=== PATIENT | male | born 1975 | race African-American/Black ===

== ENCOUNTER 2018-08-09 23:04 | Inpatient (IN) ==
[2018-08-10] MEDS ORDERED: SODIUM CHLORIDE 0.9% 1,000 ML IV SCH (00:30)
[2018-08-10] MEDS ORDERED: ALBUTEROL 2.5 MG/3 ML NEB RESP TX PRN (00:34)
[2018-08-10 00:48] LABS: Basophils # 0.1 10*3/uL (0.0-0.2); Basophils % 0.5 % (0.0-0.8); Eosinophils % 0.4 % (0.00-10.9); Hematocrit 24.5 VOL% (42.0-52.0); Hemoglobin 7.8 GM/DL (14.0-18.0); Immature Granulocytes % 2.5 %; Immature Granulocytes Absolute 0.24 #; Lymphocytes # 0.3 10*3/uL (1.4-4.0); Lymphocytes % 2.8 % (21.2-54.2); Mean Corpuscular HGB Conc 31.8 GM/DL (32-36); Mean Corpuscular Volume 89.7 FL (87-102); Monocytes % 9.8 % (1.7-12.7); Platelet Count 266 T/CUMM (130-400); Red Blood Count 2.73 MC/CUMM (3.8-5.5); Red Cell Distribution Width 16.6 % (9.3-17.3); White Blood Count 9.5 T/CUMM (4-12)
[2018-08-10 01:06] LABS: Osmolality,Calculated 328.1 MOS/KG (273-304)
[2018-08-10 01:11] LABS: Band Neutrophils 1 % (0-10); Eosinophils 1 % (0-10); Lymphocytes 4 % (20-55); Segmented Neutrophils 83 % (50-85)
[2018-08-10 01:13] LABS: Platelet Estimate Normal; Total Cells Counted 100
[2018-08-10] MEDS ORDERED: GLUCAGON 1 MG VIAL IM PRN (01:46)
[2018-08-10] MEDS ORDERED: DEXTROSE 50% 25 GM/50 ML SYRINGE IV PRN (01:46)
[2018-08-10] MEDS: SODIUM BICARB INJ 150 MEQ in DEXTROSE 5% 1,000 ML IV SCH (02:49)
[2018-08-10] MEDS: INSULIN LISPRO 100 UNIT/ML SUBCUT SCH ×4 (02:58→21:18)
[2018-08-10] MEDS ORDERED: DEXTROSE 5% 1,000 ML IV SCH (04:30)
[2018-08-10 04:56] LABS: ABG Base Excess -16.2 MMOL/L (-2.5-2.5); ABG HCO3 11.9 MMOL/L (20-26); ABG Oxygen Saturation 96.3 % (95-100); ABG PCO2 32.1 MM HG (35-48); ABG TCO2 11.1 MMOL/L (23-27); Allen Test Positive; Pt O2 Delivery Device Room Air
[2018-08-10] MEDS ORDERED: SODIUM BICARBONATE 50 MEQ/50 ML VIAL IV ONE ×3 (05:22→09:01)
[2018-08-10 07:34] LABS: ABG Base Excess -12.4 MMOL/L (-2.5-2.5); ABG HCO3 14.6 MMOL/L (20-26); ABG Oxygen Saturation 98.7 % (95-100); ABG PCO2 38.1 MM HG (35-48); ABG TCO2 14.3 MMOL/L (23-27); Allen Test Positive; Pt O2 Delivery Device Room Air
[2018-08-10 08:13] LABS: Apearance,Urine CLEAR (Clear); Bacteria,Urine Occasional /HPF (Few); Bilirubin,Urine Negative (Negative); Blood, Urine Moderate mg/dL (Negative); Glucose,Urine (UA) Negative (Negative); Ketones,Urine Negative (Negative); Nitrite,Urine Negative (Negative); Protein,Urine Negative; RBC,Urine 6 /HPF (0-4); Squamous Epithelial Cell,Urine Occasional /HPF (0-10); Urine Color Yellow (Yellow); Urine Specific Gravity 1.011 (1.001-1.035); Urine Urobilinogen < 2.0 EU/DL (0.2-1.0); WBC,Urine 5 /HPF (0-6)
[2018-08-10 08:57] LABS: Calcium 8.3 MG/DL (8.5-10.1)
[2018-08-10] MEDS ORDERED: PANTOPRAZOLE 40 MG VIAL IV SCH (09:00)
[2018-08-10] MEDS ORDERED: ASPIRIN 325 MG TABLET PO SCH (09:00)
[2018-08-10] MEDS ORDERED: CARVEDILOL 25 MG TABLET PO SCH (09:00)
[2018-08-10] MEDS: APIXABAN 5 MG TABLET PO SCH ×2 (09:17→21:19)
[2018-08-10] MEDS: LACTULOSE 20 GM/30 ML UDCUP PO SCH (09:18)
[2018-08-10] MEDS ORDERED: INSULIN LISPRO 100 UNIT/ML SUBCUT SCH (12:00)
[2018-08-10] MEDS: traMADol 50 MG TABLET PO PRN (16:23)
[2018-08-10] MEDS: CARVEDILOL 12.5 MG TABLET PO SCH (21:52)
[2018-08-10] MEDS: PANTOPRAZOLE 40 MG VIAL IV SCH (21:52)
[2018-08-11] MEDS: INSULIN LISPRO 100 UNIT/ML SUBCUT SCH ×7 (00:55→23:45)
[2018-08-11] MEDS: SODIUM BICARB INJ 150 MEQ in DEXTROSE 5% 1,000 ML IV SCH ×4 (00:58→20:50)
[2018-08-11] MEDS: traMADol 50 MG TABLET PO PRN (00:59)
[2018-08-11 05:58] LABS: Basophils % 0.6 % (0.0-0.8); Eosinophils # 0.2 10*3/uL (0.0-0.87); Eosinophils % 2.2 % (0.00-10.9); Hematocrit 22.6 VOL% (42.0-52.0); Hemoglobin 7.1 GM/DL (14.0-18.0); Immature Granulocytes % 1.8 %; Immature Granulocytes Absolute 0.12 #; Lymphocytes # 0.4 10*3/uL (1.4-4.0); Lymphocytes % 5.5 % (21.2-54.2); Mean Corpuscular HGB Conc 31.4 GM/DL (32-36); Mean Corpuscular Volume 87.9 FL (87-102); Mean Platelet Volume 10.2 FL (9.6-12.0); Monocytes % 8.8 % (1.7-12.7); NRBC # 0.03 10*3/uL; Neutrophils % 81.1 % (38.7-73.9); Platelet Count 240 T/CUMM (130-400); Red Blood Count 2.57 MC/CUMM (3.8-5.5); Red Cell Distribution Width 16.7 % (9.3-17.3); White Blood Count 6.7 T/CUMM (4-12)
[2018-08-11 06:07] LABS: Calcium 8.3 MG/DL (8.5-10.1)
[2018-08-11 06:10] LABS: % Iron Saturation 32.6 % (18-50); Ferritin 576.2 ng/ml (26-388)
[2018-08-11] MEDS: PANTOPRAZOLE 40 MG VIAL IV SCH ×2 (08:26→20:33)
[2018-08-11] MEDS: LACTULOSE 20 GM/30 ML UDCUP PO SCH (08:26)
[2018-08-11] MEDS ORDERED: LIDOCAINE 1%/EPI INJ 20 ML VIAL ONE (09:36)
[2018-08-11] MEDS ORDERED: HEPARIN 5,000 UNIT/1 ML VIAL ONE (09:37)
[2018-08-11] MEDS: SODIUM CHLORIDE 0.9% 250 ML IV SCH (09:51)
[2018-08-11] MEDS: APIXABAN 5 MG TABLET PO SCH (10:41)
[2018-08-11] MEDS ORDERED: FLUMAZENIL 0.5 MG/5 ML VIAL IV ONE (10:49)
[2018-08-11] MEDS ORDERED: PROPOFOL 200 MG/20 ML VIAL IV ONE (10:59)
[2018-08-11] MEDS ORDERED: fentaNYL 100 MCG/2 ML VIAL ONE (10:59)
[2018-08-11] MEDS ORDERED: PHENYLEPHRINE 1 MG/10 ML SYRINGE IV ONE (10:59)
[2018-08-11] MEDS ORDERED: EPINEPHrine 1 MG/ML VIAL ONE ×2 (10:59→22:19)
[2018-08-11] MEDS ORDERED: MIDAZOLAM 2 MG/2 ML VIAL ONE (10:59)
[2018-08-11] MEDS ORDERED: KETAMINE 500 MG/10 ML VIAL ONE (11:00)
[2018-08-11 11:50] LABS: ABG Base Excess -10.5 MMOL/L (-2.5-2.5); ABG HCO3 15.9 MMOL/L (20-26); ABG Oxygen Saturation 96.5 % (95-100); ABG PCO2 46.7 MM HG (35-48); ABG TCO2 16.9 MMOL/L (23-27); Allen Test Positive
[2018-08-11 11:52] LABS: ABG PH 7.178 (7.35-7.45)
[2018-08-11] MEDS ORDERED: SODIUM BICARBONATE 50 MEQ/50 ML VIAL IV ONE ×4 (11:55→12:38)
[2018-08-11] MEDS: CARVEDILOL 12.5 MG TABLET PO SCH ×2 (12:01→20:33)
[2018-08-11 12:26] LABS: ABG HCO3 17.1 MMOL/L (20-26); ABG Oxygen Saturation 96.5 % (95-100); ABG TCO2 18.1 MMOL/L (23-27); Allen Test Positive
[2018-08-11 12:29] LABS: ABG PH 7.197 (7.35-7.45)
[2018-08-11 13:02] LABS: ABG Base Excess -6.7 MMOL/L (-2.5-2.5); ABG HCO3 19.9 MMOL/L (20-26); ABG Oxygen Saturation 98.4 % (95-100); ABG PCO2 45.9 MM HG (35-48); ABG PH 7.255 (7.35-7.45); ABG PO2 181.3 MM HG (80-95); ABG TCO2 21.3 MMOL/L (23-27); Allen Test Positive; Pt O2 Delivery Device BIPAP
[2018-08-11] MEDS ORDERED: PHENYLEPHRINE 50 MG/5 ML VIAL IV ONE (13:25)
[2018-08-11] MEDS ORDERED: PHENYLEPHRINE DRIP 40 MG/250 ML PREMIX IV ONE (13:27)
[2018-08-11 18:17] LABS: Hepatitis B Surface Ag Quant < 0.10 Index; Hepatitis B Surface Ag Result Negative (Negative)
[2018-08-11] MEDS: PHENYLEPHRINE DRIP 40 MG/250 ML PREMIX IV PRN ×2 (19:26→23:31)
[2018-08-11] MEDS ORDERED: MIDAZOLAM 10 MG/2 ML VIAL ONE (22:02)
[2018-08-11] MEDS: DOPamine 800 MG/250 ML PREMIX IV PRN (22:20)
[2018-08-11] MEDS ORDERED: MIDAZOLAM 2 MG/2 ML VIAL IV ONE (22:31)
[2018-08-11 22:43] LABS: ABG Base Excess -6.6 MMOL/L (-2.5-2.5); ABG Oxygen Saturation 99.1 % (95-100); ABG PCO2 48.1 MM HG (35-48); ABG PH 7.238 (7.35-7.45); ABG TCO2 19.8 MMOL/L (23-27)
[2018-08-11] MEDS ORDERED: PROPOFOL 1,000 MG/100 ML BOTTLE IV ONE (23:13)
[2018-08-11 23:17] LABS: Albumin 2.1 G/DL (3.4-5.0); Bilirubin,Total 0.4 MG/DL (0.2-1.0); Calcium 7.8 MG/DL (8.5-10.1); Osmolality,Calculated 304.8 MOS/KG (273-304)
[2018-08-11] MEDS: PROPOFOL 1,000 MG/100 ML BOTTLE IV SCH (23:32)
[2018-08-12] MEDS: PHENYLEPHRINE DRIP 40 MG/250 ML PREMIX IV PRN ×6 (00:23→20:24)
[2018-08-12] MEDS: SODIUM BICARB INJ 150 MEQ in DEXTROSE 5% 1,000 ML IV SCH ×4 (01:07→20:25)
[2018-08-12 04:11] LABS: Basophils % 0.1 % (0.0-0.8); Eosinophils # 0.2 10*3/uL (0.0-0.87); Eosinophils % 1.7 % (0.00-10.9); Hematocrit 20.7 VOL% (42.0-52.0); Hemoglobin 6.6 GM/DL (14.0-18.0); Immature Granulocytes % 4.1 %; Immature Granulocytes Absolute 0.38 #; Lymphocytes # 0.4 10*3/uL (1.4-4.0); Mean Corpuscular HGB Conc 31.9 GM/DL (32-36); Mean Corpuscular Volume 85.9 FL (87-102); Mean Platelet Volume 10.7 FL (9.6-12.0); Monocytes % 7.2 % (1.7-12.7); NRBC # 0.06 10*3/uL; Neutrophils % 82.9 % (38.7-73.9); Platelet Count 265 T/CUMM (130-400); Red Blood Count 2.41 MC/CUMM (3.8-5.5); Red Cell Distribution Width 16.6 % (9.3-17.3); White Blood Count 9.3 T/CUMM (4-12)
[2018-08-12] MEDS: INSULIN LISPRO 100 UNIT/ML SUBCUT SCH ×5 (04:27→20:32)
[2018-08-12 04:28] LABS: Calcium 8.1 MG/DL (8.5-10.1); Osmolality,Calculated 306.8 MOS/KG (273-304)
[2018-08-12 04:30] LABS: ABG Base Excess 1.7 MMOL/L (-2.5-2.5); ABG HCO3 25.9 MMOL/L (20-26); ABG Oxygen Saturation 99.5 % (95-100); ABG PCO2 41.3 MM HG (35-48); ABG PH 7.413 (7.35-7.45)
[2018-08-12] MEDS: PROPOFOL 1,000 MG/100 ML BOTTLE IV SCH ×4 (04:54→20:55)
[2018-08-12 05:56] LABS: Eosinophils 1 % (0-10); Lymphocytes 9 % (20-55); Platelet Estimate Normal; Segmented Neutrophils 89 % (50-85); Total Cells Counted 100
[2018-08-12 05:57] LABS: Hypochromasia Slight
[2018-08-12 05:58] LABS: Polychromasia Few
[2018-08-12] MEDS: PANTOPRAZOLE 40 MG VIAL IV SCH ×2 (08:05→20:32)
[2018-08-12] MEDS ORDERED: SODIUM CHLORIDE 0.9% 1,000 ML IV PRN (08:08)
[2018-08-12] MEDS: ASPIRIN CHEW 81 MG TABLET PO SCH (09:45)
[2018-08-12] MEDS: LACTULOSE 20 GM/30 ML UDCUP PO SCH (09:45)
[2018-08-12] MEDS: DOPamine 800 MG/250 ML PREMIX IV PRN (16:39)
[2018-08-12] MEDS: SILVER SULFADIAZINE 1% CREAM 25 GM TUBE TOP SCH (16:40)
[2018-08-12] MEDS: SKIN HEALING OINT (AQUAPHOR) 50 GM TUBE TOP SCH (16:40)
[2018-08-13] MEDS: INSULIN LISPRO 100 UNIT/ML SUBCUT SCH ×6 (01:10→21:56)
[2018-08-13] MEDS: PROPOFOL 1,000 MG/100 ML BOTTLE IV SCH ×5 (01:11→22:15)
[2018-08-13] MEDS: PHENYLEPHRINE DRIP 40 MG/250 ML PREMIX IV PRN ×3 (01:27→09:58)
[2018-08-13 03:35] LABS: ABG Base Excess 3.4 MMOL/L (-2.5-2.5); ABG HCO3 27.5 MMOL/L (20-26); ABG Oxygen Saturation 99.5 % (95-100); ABG PCO2 42.2 MM HG (35-48); ABG TCO2 26.2 MMOL/L (23-27); Allen Test Positive; Pt O2 Delivery Device Ventilator
[2018-08-13 04:19] LABS: Basophils # 0.1 10*3/uL (0.0-0.2); Basophils % 0.6 % (0.0-0.8); Eosinophils # 0.5 10*3/uL (0.0-0.87); Eosinophils % 3.9 % (0.00-10.9); Hematocrit 22.9 VOL% (42.0-52.0); Hemoglobin 7.3 GM/DL (14.0-18.0); Immature Granulocytes % 4.9 %; Immature Granulocytes Absolute 0.59 #; Lymphocytes # 0.5 10*3/uL (1.4-4.0); Lymphocytes % 4.2 % (21.2-54.2); Mean Corpuscular HGB Conc 31.9 GM/DL (32-36); Mean Corpuscular Volume 85.8 FL (87-102); Mean Platelet Volume 10.4 FL (9.6-12.0); Monocytes % 8.5 % (1.7-12.7); NRBC # 0.08 10*3/uL; Neutrophils % 77.9 % (38.7-73.9); Platelet Count 283 T/CUMM (130-400); Red Blood Count 2.67 MC/CUMM (3.8-5.5); Red Cell Distribution Width 16.3 % (9.3-17.3); White Blood Count 12.1 T/CUMM (4-12)
[2018-08-13 04:46] LABS: Calcium 8.3 MG/DL (8.5-10.1)
[2018-08-13 05:41] LABS: Eosinophils 4 % (0-10); Hypochromasia 2+; Lymphocytes 6 % (20-55); Platelet Estimate Normal; Segmented Neutrophils 82 % (50-85); Target Cells Few; Total Cells Counted 100
[2018-08-13] MEDS ORDERED: SODIUM CHLORIDE 0.9% 1,000 ML IV PRN (08:09)
[2018-08-13] MEDS ORDERED: VANCOMYCIN INJ 1,000 MG in SODIUM CHLORIDE 0.9% 250 ML IV PRN (08:14)
[2018-08-13] MEDS: PANTOPRAZOLE 40 MG VIAL IV SCH ×2 (08:39→20:55)
[2018-08-13] MEDS: LACTULOSE 20 GM/30 ML UDCUP PO SCH (08:39)
[2018-08-13] MEDS: ASPIRIN CHEW 81 MG TABLET PO SCH (08:39)
[2018-08-13] MEDS: MEROPENEM 500 MG in SODIUM CHLORIDE 0.9% 100 ML IV SCH (08:39)
[2018-08-13] MEDS ORDERED: VANCOMYCIN INJ 2,500 MG in SODIUM CHLORIDE 0.9% 500 ML IV ONE (09:00)
[2018-08-13] MEDS ORDERED: POTASSIUM CHLORIDE 20 MEQ/15 ML UDCUP PO ONE (09:57)
[2018-08-13] MEDS: SKIN HEALING OINT (AQUAPHOR) 50 GM TUBE TOP SCH (14:45)
[2018-08-13] MEDS: SILVER SULFADIAZINE 1% CREAM 25 GM TUBE TOP SCH (14:45)
[2018-08-13] MEDS: DOPamine 800 MG/250 ML PREMIX IV PRN (17:23)
[2018-08-13] MEDS: HEPARIN 10,000 UNIT/10 ML VIAL IV PRN ×2 (18:30→20:57)
[2018-08-14] MEDS: INSULIN LISPRO 100 UNIT/ML SUBCUT SCH ×6 (00:59→20:43)
[2018-08-14] MEDS: PROPOFOL 1,000 MG/100 ML BOTTLE IV SCH (01:58)
[2018-08-14] MEDS: DOPamine 800 MG/250 ML PREMIX IV PRN ×2 (03:46→15:55)
[2018-08-14 03:59] LABS: ABG Base Excess 1.2 MMOL/L (-2.5-2.5); ABG HCO3 25.5 MMOL/L (20-26); ABG Oxygen Saturation 99.5 % (95-100); ABG PCO2 42.1 MM HG (35-48); ABG PH 7.402 (7.35-7.45); Allen Test Positive; Pt O2 Delivery Device Ventilator
[2018-08-14 04:16] LABS: Basophils # 0.1 10*3/uL (0.0-0.2); Basophils % 0.6 % (0.0-0.8); Eosinophils # 0.4 10*3/uL (0.0-0.87); Eosinophils % 3.6 % (0.00-10.9); Hematocrit 25.9 VOL% (42.0-52.0); Immature Granulocytes % 5.2 %; Immature Granulocytes Absolute 0.51 #; Lymphocytes # 0.6 10*3/uL (1.4-4.0); Lymphocytes % 5.7 % (21.2-54.2); Mean Corpuscular HGB Conc 30.9 GM/DL (32-36); Mean Corpuscular Volume 88.4 FL (87-102); Mean Platelet Volume 10.3 FL (9.6-12.0); NRBC # 0.07 10*3/uL; Neutrophils % 74.9 % (38.7-73.9); Platelet Count 254 T/CUMM (130-400); Red Blood Count 2.93 MC/CUMM (3.8-5.5); Red Cell Distribution Width 15.9 % (9.3-17.3); White Blood Count 9.9 T/CUMM (4-12)
[2018-08-14 04:28] LABS: Calcium 8.9 MG/DL (8.5-10.1); Osmolality,Calculated 292.8 MOS/KG (273-304)
[2018-08-14 04:39] LABS: Bilirubin,Total 1.1 MG/DL (0.2-1.0); Calcium 8.7 MG/DL (8.5-10.1); Total Protein 7.1 G/DL (6.4-8.3)
[2018-08-14 04:56] LABS: Basophilic Stippling Slight; Eosinophils 3 % (0-10); Hypochromasia Slight; Lymphocytes 7 % (20-55); Ovalocytes Few; Platelet Estimate Normal; Segmented Neutrophils 82 % (50-85); Target Cells 2+; Total Cells Counted 100
[2018-08-14] MEDS ORDERED: EPOETIN ALFA 10,000 UNIT/1 ML VIAL IV PRN (08:40)
[2018-08-14] MEDS: MEROPENEM 500 MG in SODIUM CHLORIDE 0.9% 100 ML IV SCH (09:09)
[2018-08-14] MEDS: ASPIRIN CHEW 81 MG TABLET PO SCH (09:10)
[2018-08-14] MEDS: SKIN HEALING OINT (AQUAPHOR) 50 GM TUBE TOP SCH (09:10)
[2018-08-14] MEDS: LACTULOSE 20 GM/30 ML UDCUP PO SCH (09:10)
[2018-08-14] MEDS: PANTOPRAZOLE 40 MG VIAL IV SCH ×2 (09:11→20:24)
[2018-08-14] MEDS: SILVER SULFADIAZINE 1% CREAM 25 GM TUBE TOP SCH (09:18)
[2018-08-14 10:05] LABS: ABG Base Excess 2.1 MMOL/L (-2.5-2.5); ABG HCO3 27.7 MMOL/L (20-26); ABG Oxygen Saturation 98.1 % (95-100); ABG PCO2 48.5 MM HG (35-48); ABG PH 7.374 (7.35-7.45); ABG PO2 127.8 MM HG (80-95); ABG TCO2 29.2 MMOL/L (23-27)
[2018-08-14 12:24] LABS: ABG Base Excess 1.1 MMOL/L (-2.5-2.5); ABG HCO3 25.4 MMOL/L (20-26); ABG PCO2 49.9 MM HG (35-48); ABG PH 7.345 (7.35-7.45); ABG TCO2 25.4 MMOL/L (23-27)
[2018-08-14] MEDS ORDERED: VANCOMYCIN INJ 1,000 MG in SODIUM CHLORIDE 0.9% 250 ML IV ONE (15:00)
[2018-08-14] MEDS: SODIUM CHLORIDE 0.9% 250 ML IV SCH ×2 (19:59→20:41)
[2018-08-15] MEDS: INSULIN LISPRO 100 UNIT/ML SUBCUT SCH ×7 (00:19→23:29)
[2018-08-15] MEDS: traMADol 50 MG TABLET PO PRN ×2 (00:46→20:24)
[2018-08-15] MEDS: SILVER SULFADIAZINE 1% CREAM 25 GM TUBE TOP SCH ×2 (02:20→08:23)
[2018-08-15 03:14] LABS: ABG Base Excess 0.6 MMOL/L (-2.5-2.5); ABG Oxygen Saturation 98.4 % (95-100); ABG PCO2 51.6 MM HG (35-48); ABG PH 7.327 (7.35-7.45); ABG TCO2 25.3 MMOL/L (23-27); Allen Test Positive
[2018-08-15 05:31] LABS: Calcium 9.3 MG/DL (8.5-10.1); Osmolality,Calculated 286.5 MOS/KG (273-304)
[2018-08-15 05:37] LABS: Basophils % 0.3 % (0.0-0.8); Eosinophils # 0.3 10*3/uL (0.0-0.87); Eosinophils % 2.3 % (0.00-10.9); Hematocrit 26.8 VOL% (42.0-52.0); Hemoglobin 8.3 GM/DL (14.0-18.0); Immature Granulocytes % 5.8 %; Immature Granulocytes Absolute 0.67 #; Lymphocytes # 0.5 10*3/uL (1.4-4.0); Lymphocytes % 4.3 % (21.2-54.2); Mean Corpuscular Volume 90.2 FL (87-102); Mean Platelet Volume 10.8 FL (9.6-12.0); Monocytes % 9.5 % (1.7-12.7); NRBC # 0.15 10*3/uL; Neutrophils % 77.8 % (38.7-73.9); Platelet Count 240 T/CUMM (130-400); Red Blood Count 2.97 MC/CUMM (3.8-5.5); White Blood Count 11.6 T/CUMM (4-12)
[2018-08-15 06:45] LABS: Band Neutrophils 1 % (0-10); Eosinophils 1 % (0-10); Hypochromasia 2+; Lymphocytes 11 % (20-55); Metamyelocytes 2 %; Nucleated Red Blood Cells 1 (0-5); Platelet Estimate Normal; Segmented Neutrophils 72 % (50-85); Total Cells Counted 100
[2018-08-15 06:46] LABS: Acanthocytes Few; Anisocytosis 1+; Macrocytosis 1+; Ovalocytes Few
[2018-08-15] MEDS: DOPamine 800 MG/250 ML PREMIX IV PRN ×2 (06:53→19:38)
[2018-08-15] MEDS: PANTOPRAZOLE 40 MG VIAL IV SCH ×2 (07:59→20:07)
[2018-08-15] MEDS: LACTULOSE 20 GM/30 ML UDCUP PO SCH (08:00)
[2018-08-15] MEDS: MEROPENEM 500 MG in SODIUM CHLORIDE 0.9% 100 ML IV SCH (08:00)
[2018-08-15] MEDS: ASPIRIN CHEW 81 MG TABLET PO SCH (08:01)
[2018-08-15] MEDS: SKIN HEALING OINT (AQUAPHOR) 50 GM TUBE TOP SCH (08:23)
[2018-08-15] MEDS: APIXABAN 2.5 MG TABLET PO SCH ×2 (09:18→20:07)
[2018-08-15] MEDS ORDERED: NOREPINEPHRINE 4 MG/4 ML VIAL IV ONE (15:40)
[2018-08-15] MEDS: guaiFENesin 200 MG/10 ML UDCUP PO PRN (23:15)
[2018-08-16] MEDS: SILVER SULFADIAZINE 1% CREAM 25 GM TUBE TOP SCH ×2 (04:00→11:04)
[2018-08-16] MEDS: SKIN HEALING OINT (AQUAPHOR) 50 GM TUBE TOP SCH ×2 (04:00→09:48)
[2018-08-16] MEDS: INSULIN LISPRO 100 UNIT/ML SUBCUT SCH ×6 (04:55→23:58)
[2018-08-16 05:43] LABS: Osmolality,Calculated 291.5 MOS/KG (273-304)
[2018-08-16] MEDS: DOPamine 800 MG/250 ML PREMIX IV PRN (06:29)
[2018-08-16] MEDS: MEROPENEM 500 MG in SODIUM CHLORIDE 0.9% 100 ML IV SCH (11:03)
[2018-08-16] MEDS: LACTULOSE 20 GM/30 ML UDCUP PO SCH (11:03)
[2018-08-16] MEDS: APIXABAN 2.5 MG TABLET PO SCH ×2 (11:03→20:18)
[2018-08-16] MEDS: ASPIRIN CHEW 81 MG TABLET PO SCH (11:03)
[2018-08-16] MEDS: PANTOPRAZOLE 40 MG VIAL IV SCH ×2 (11:04→20:17)
[2018-08-16] MEDS: guaiFENesin 200 MG/10 ML UDCUP PO PRN (16:53)
[2018-08-16] MEDS ORDERED: VANCOMYCIN INJ 1,000 MG in SODIUM CHLORIDE 0.9% 250 ML IV ONE (17:00)
[2018-08-17] MEDS: SKIN HEALING OINT (AQUAPHOR) 50 GM TUBE TOP SCH ×2 (03:30→09:07)
[2018-08-17] MEDS: SILVER SULFADIAZINE 1% CREAM 25 GM TUBE TOP SCH ×2 (03:30→09:07)
[2018-08-17] MEDS: INSULIN LISPRO 100 UNIT/ML SUBCUT SCH ×6 (04:13→23:24)
[2018-08-17 04:55] LABS: Basophils % 0.3 % (0.0-0.8); Eosinophils # 0.4 10*3/uL (0.0-0.87); Hematocrit 25.4 VOL% (42.0-52.0); Hemoglobin 7.6 GM/DL (14.0-18.0); Immature Granulocytes % 7.3 %; Immature Granulocytes Absolute 0.97 #; Lymphocytes # 0.6 10*3/uL (1.4-4.0); Lymphocytes % 4.3 % (21.2-54.2); Mean Corpuscular HGB Conc 29.9 GM/DL (32-36); Mean Corpuscular Volume 93.4 FL (87-102); Mean Platelet Volume 10.8 FL (9.6-12.0); Monocytes % 9.9 % (1.7-12.7); NRBC # 0.18 10*3/uL; Neutrophils % 75.2 % (38.7-73.9); Platelet Count 230 T/CUMM (130-400); Red Blood Count 2.72 MC/CUMM (3.8-5.5); Red Cell Distribution Width 16.2 % (9.3-17.3); White Blood Count 13.3 T/CUMM (4-12)
[2018-08-17 05:24] LABS: Calcium 9.8 MG/DL (8.5-10.1); Osmolality,Calculated 283.8 MOS/KG (273-304)
[2018-08-17 05:45] LABS: Band Neutrophils 1 % (0-10); Eosinophils 4 % (0-10); Lymphocytes 5 % (20-55); Myelocytes 4 %; Nucleated Red Blood Cells 3 (0-5); Segmented Neutrophils 81 % (50-85); Total Cells Counted 100
[2018-08-17 05:47] LABS: Acanthocytes Few; Anisocytosis 1+; Hypochromasia 1+; Platelet Estimate Adequate
[2018-08-17] MEDS ORDERED: POTASSIUM CHLORIDE 20 MEQ TABLET PO ONE ×2 (07:42→23:17)
[2018-08-17] MEDS: ASPIRIN CHEW 81 MG TABLET PO SCH (09:40)
[2018-08-17] MEDS: APIXABAN 2.5 MG TABLET PO SCH ×2 (09:40→21:49)
[2018-08-17] MEDS: PANTOPRAZOLE 40 MG VIAL IV SCH ×2 (09:40→21:49)
[2018-08-17] MEDS: LACTULOSE 20 GM/30 ML UDCUP PO SCH (09:40)
[2018-08-17] MEDS: MEROPENEM 500 MG in SODIUM CHLORIDE 0.9% 100 ML IV SCH (09:41)
[2018-08-17] MEDS: DOPamine 800 MG/250 ML PREMIX IV PRN (10:21)
[2018-08-17 22:18] LABS: Basophils % 0.3 % (0.0-0.8); Eosinophils # 0.4 10*3/uL (0.0-0.87); Hematocrit 25.9 VOL% (42.0-52.0); Hemoglobin 7.6 GM/DL (14.0-18.0); Immature Granulocytes % 8.8 %; Immature Granulocytes Absolute 1.26 #; Lymphocytes # 0.6 10*3/uL (1.4-4.0); Mean Corpuscular HGB Conc 29.3 GM/DL (32-36); Mean Corpuscular Volume 93.5 FL (87-102); Monocytes % 11.6 % (1.7-12.7); NRBC # 0.15 10*3/uL; Neutrophils % 72.3 % (38.7-73.9); Platelet Count 221 T/CUMM (130-400); Red Blood Count 2.77 MC/CUMM (3.8-5.5); White Blood Count 14.3 T/CUMM (4-12)
[2018-08-17 22:19] LABS: ABG Base Excess -0.9 MMOL/L (-2.5-2.5); ABG HCO3 23.7 MMOL/L (20-26); ABG Oxygen Saturation 98.6 % (95-100); ABG PCO2 55.5 MM HG (35-48); ABG PH 7.284 (7.35-7.45); ABG TCO2 24.7 MMOL/L (23-27); Allen Test Positive; Pt O2 Delivery Device Simple Mask
[2018-08-17 22:36] LABS: Bilirubin,Total 0.6 MG/DL (0.2-1.0); Calcium 10.4 MG/DL (8.5-10.1); Osmolality,Calculated 287.8 MOS/KG (273-304); Total Protein 7.3 G/DL (6.4-8.3)
[2018-08-17 23:47] LABS: Band Neutrophils 1 % (0-10); Lymphocytes 3 % (20-55); Metamyelocytes 3 %; Myelocytes 2 %; Segmented Neutrophils 83 % (50-85); Total Cells Counted 100
[2018-08-17 23:48] LABS: Acanthocytes Few; Anisocytosis 1+; Hypochromasia 1+; Target Cells Few
[2018-08-17 23:49] LABS: Platelet Estimate Adequate
[2018-08-18] MEDS: INSULIN LISPRO 100 UNIT/ML SUBCUT SCH ×6 (03:35→23:30)
[2018-08-18 06:17] LABS: Basophils # 0.1 10*3/uL (0.0-0.2); Basophils % 0.4 % (0.0-0.8); Eosinophils # 0.4 10*3/uL (0.0-0.87); Hematocrit 24.7 VOL% (42.0-52.0); Hemoglobin 7.4 GM/DL (14.0-18.0); Immature Granulocytes % 6.9 %; Immature Granulocytes Absolute 0.95 #; Lymphocytes # 0.5 10*3/uL (1.4-4.0); Lymphocytes % 3.9 % (21.2-54.2); Mean Corpuscular Volume 92.9 FL (87-102); Mean Platelet Volume 10.4 FL (9.6-12.0); Monocytes % 11.3 % (1.7-12.7); Neutrophils % 74.5 % (38.7-73.9); Platelet Count 250 T/CUMM (130-400); Red Blood Count 2.66 MC/CUMM (3.8-5.5); Red Cell Distribution Width 16.1 % (9.3-17.3); White Blood Count 13.8 T/CUMM (4-12)
[2018-08-18 07:09] LABS: Eosinophils 2 % (0-10); Hypochromasia 1+; Lymphocytes 7 % (20-55); Metamyelocytes 1 %; Microcytosis 1+; Segmented Neutrophils 76 % (50-85); Target Cells Slight; Total Cells Counted 100
[2018-08-18 07:10] LABS: Platelet Estimate Normal
[2018-08-18 07:15] LABS: Albumin 1.9 G/DL (3.4-5.0); Bilirubin,Total 0.7 MG/DL (0.2-1.0); Calcium 10.3 MG/DL (8.5-10.1); Osmolality,Calculated 290.7 MOS/KG (273-304); Total Protein 7.1 G/DL (6.4-8.3)
[2018-08-18] MEDS: POTASSIUM CHLORIDE RIDER 10 MEQ in PREMIX 1 EACH IV PRN (08:05)
[2018-08-18] MEDS ORDERED: POTASSIUM CHLORIDE 20 MEQ TABLET PO ONE (08:43)
[2018-08-18] MEDS: POTASSIUM CHLORIDE 20 MEQ TABLET PO SCH ×2 (09:41→21:23)
[2018-08-18] MEDS: APIXABAN 2.5 MG TABLET PO SCH ×2 (09:41→21:23)
[2018-08-18] MEDS: ASPIRIN CHEW 81 MG TABLET PO SCH (09:41)
[2018-08-18] MEDS: LACTULOSE 20 GM/30 ML UDCUP PO SCH (09:41)
[2018-08-18] MEDS: PANTOPRAZOLE 40 MG VIAL IV SCH ×2 (09:42→21:22)
[2018-08-18] MEDS: MEROPENEM 500 MG in SODIUM CHLORIDE 0.9% 100 ML IV SCH (09:42)
[2018-08-18] MEDS: SILVER SULFADIAZINE 1% CREAM 25 GM TUBE TOP SCH (10:20)
[2018-08-18] MEDS: SKIN HEALING OINT (AQUAPHOR) 50 GM TUBE TOP SCH (10:20)
[2018-08-18] MEDS: DOPamine 800 MG/250 ML PREMIX IV PRN (11:46)
[2018-08-18] MEDS: traMADol 50 MG TABLET PO PRN ×2 (12:19→21:23)
[2018-08-19] MEDS: INSULIN LISPRO 100 UNIT/ML SUBCUT SCH ×6 (04:08→21:40)
[2018-08-19 04:50] LABS: Basophils % 0.3 % (0.0-0.8); Eosinophils # 0.4 10*3/uL (0.0-0.87); Eosinophils % 3.6 % (0.00-10.9); Hematocrit 23.2 VOL% (42.0-52.0); Immature Granulocytes % 5.5 %; Immature Granulocytes Absolute 0.61 #; Lymphocytes # 0.4 10*3/uL (1.4-4.0); Lymphocytes % 3.9 % (21.2-54.2); Mean Corpuscular HGB Conc 30.2 GM/DL (32-36); Mean Corpuscular Volume 93.2 FL (87-102); Mean Platelet Volume 11.4 FL (9.6-12.0); Monocytes % 12.1 % (1.7-12.7); NRBC # 0.18 10*3/uL; Neutrophils % 74.6 % (38.7-73.9); Platelet Count 214 T/CUMM (130-400); Red Blood Count 2.49 MC/CUMM (3.8-5.5); Red Cell Distribution Width 16.4 % (9.3-17.3); White Blood Count 11.1 T/CUMM (4-12)
[2018-08-19 04:52] LABS: Osmolality,Calculated 285.2 MOS/KG (273-304)
[2018-08-19 07:32] LABS: Band Neutrophils 2 % (0-10); Hypochromasia 1+; Lymphocytes 7 % (20-55); Microcytosis 1+; Ovalocytes Slight; Platelet Estimate Adequate; Segmented Neutrophils 80 % (50-85); Total Cells Counted 100
[2018-08-19] MEDS: ASPIRIN CHEW 81 MG TABLET PO SCH (09:08)
[2018-08-19] MEDS: MEROPENEM 500 MG in SODIUM CHLORIDE 0.9% 100 ML IV SCH ×2 (09:08→16:36)
[2018-08-19] MEDS: APIXABAN 2.5 MG TABLET PO SCH (09:08)
[2018-08-19] MEDS: LACTULOSE 20 GM/30 ML UDCUP PO SCH ×2 (09:08→09:12)
[2018-08-19] MEDS: SKIN HEALING OINT (AQUAPHOR) 50 GM TUBE TOP SCH (09:09)
[2018-08-19] MEDS: PANTOPRAZOLE 40 MG VIAL IV SCH (09:09)
[2018-08-19] MEDS: SILVER SULFADIAZINE 1% CREAM 25 GM TUBE TOP SCH (09:10)
[2018-08-19] MEDS: PANTOPRAZOLE 40 MG TABLET PO SCH ×2 (12:45→21:40)
[2018-08-19] MEDS: MIDODRINE 5 MG TABLET PO SCH ×2 (12:45→21:40)
[2018-08-19] MEDS ORDERED: VANCOMYCIN INJ 1,000 MG in SODIUM CHLORIDE 0.9% 250 ML IV ONE (16:00)
[2018-08-20] MEDS ORDERED: LOPERAMIDE 2 MG CAPSULE PO ONE (01:20)
[2018-08-20 05:28] LABS: Basophils % 0.4 % (0.0-0.8); Eosinophils # 0.3 10*3/uL (0.0-0.87); Eosinophils % 3.3 % (0.00-10.9); Hematocrit 23.5 VOL% (42.0-52.0); Hemoglobin 6.9 GM/DL (14.0-18.0); Immature Granulocytes % 5.9 %; Immature Granulocytes Absolute 0.55 #; Lymphocytes # 0.6 10*3/uL (1.4-4.0); Mean Corpuscular HGB Conc 29.4 GM/DL (32-36); Mean Corpuscular Volume 92.5 FL (87-102); Mean Platelet Volume 10.3 FL (9.6-12.0); Monocytes % 14.1 % (1.7-12.7); NRBC # 0.13 10*3/uL; Neutrophils % 70.3 % (38.7-73.9); Platelet Count 294 T/CUMM (130-400); Red Blood Count 2.54 MC/CUMM (3.8-5.5); Red Cell Distribution Width 16.6 % (9.3-17.3); White Blood Count 9.3 T/CUMM (4-12)
[2018-08-20 06:30] LABS: Band Neutrophils 4 % (0-10); Eosinophils 3 % (0-10); Lymphocytes 8 % (20-55); Myelocytes 2 %; Nucleated Red Blood Cells 1 (0-5); Segmented Neutrophils 67 % (50-85); Total Cells Counted 100
[2018-08-20 06:31] LABS: Anisocytosis 1+; Hypochromasia 1+; Platelet Estimate Adequate; Target Cells 1+
[2018-08-20] MEDS: MEROPENEM 500 MG in SODIUM CHLORIDE 0.9% 100 ML IV SCH (09:10)
[2018-08-20] MEDS: LACTULOSE 20 GM/30 ML UDCUP PO SCH (09:17)
[2018-08-20] MEDS: SKIN HEALING OINT (AQUAPHOR) 50 GM TUBE TOP SCH (09:18)
[2018-08-20] MEDS: ASPIRIN CHEW 81 MG TABLET PO SCH (09:18)
[2018-08-20] MEDS: MIDODRINE 5 MG TABLET PO SCH ×2 (09:18→20:26)
[2018-08-20] MEDS: PANTOPRAZOLE 40 MG TABLET PO SCH ×2 (09:19→20:26)
[2018-08-20] MEDS: SILVER SULFADIAZINE 1% CREAM 25 GM TUBE TOP SCH (09:19)
[2018-08-20] MEDS: INSULIN LISPRO 100 UNIT/ML SUBCUT SCH ×4 (10:09→20:27)
[2018-08-21 05:53] LABS: Basophils % 0.5 % (0.0-0.8); Eosinophils # 0.3 10*3/uL (0.0-0.87); Eosinophils % 3.5 % (0.00-10.9); Hematocrit 24.8 VOL% (42.0-52.0); Hemoglobin 7.3 GM/DL (14.0-18.0); Immature Granulocytes % 3.8 %; Immature Granulocytes Absolute 0.32 #; Lymphocytes # 0.6 10*3/uL (1.4-4.0); Mean Corpuscular HGB Conc 29.4 GM/DL (32-36); Mean Corpuscular Volume 94.3 FL (87-102); Monocytes % 14.8 % (1.7-12.7); NRBC # 0.09 10*3/uL; Neutrophils % 70.4 % (38.7-73.9); Platelet Count 347 T/CUMM (130-400); Red Blood Count 2.63 MC/CUMM (3.8-5.5); Red Cell Distribution Width 16.9 % (9.3-17.3); White Blood Count 8.3 T/CUMM (4-12)
[2018-08-21 06:12] LABS: Calcium 10.8 MG/DL (8.5-10.1)
[2018-08-21 06:15] LABS: % Iron Saturation 17.5 % (18-50); Ferritin 492.1 ng/ml (26-388)
[2018-08-21 06:58] LABS: Folate 3.3 NG/ML (5.4-24.0); Vitamin B12 1085 PG/ML (211-911)
[2018-08-21 07:26] LABS: Sedimentation Rate-Westergren 126 MM/HR (0-15)
[2018-08-21] MEDS ORDERED: SODIUM CHLORIDE 0.9% 1,000 ML IV PRN (07:49)
[2018-08-21] MEDS: POTASSIUM CHLORIDE RIDER 10 MEQ in PREMIX 1 EACH IV PRN ×3 (08:02→10:55)
[2018-08-21] MEDS ORDERED: ETOMIDATE 20 MG/10 ML VIAL IV ONE (09:00)
[2018-08-21] MEDS ORDERED: LIDOCAINE 2% 5 ML VIAL ONE (09:00)
[2018-08-21] MEDS: SODIUM CHLORIDE 0.9% 250 ML IV SCH ×2 (09:09→21:31)
[2018-08-21] MEDS: INSULIN LISPRO 100 UNIT/ML SUBCUT SCH ×4 (09:10→21:31)
[2018-08-21] MEDS: SKIN HEALING OINT (AQUAPHOR) 50 GM TUBE TOP SCH (09:19)
[2018-08-21] MEDS: ASPIRIN CHEW 81 MG TABLET PO SCH (09:20)
[2018-08-21] MEDS: SILVER SULFADIAZINE 1% CREAM 25 GM TUBE TOP SCH (10:01)
[2018-08-21] MEDS: PANTOPRAZOLE 40 MG TABLET PO SCH ×2 (10:01→21:31)
[2018-08-21] MEDS: LACTULOSE 20 GM/30 ML UDCUP PO SCH (10:01)
[2018-08-21] MEDS: MIDODRINE 5 MG TABLET PO SCH ×2 (11:34→21:31)
[2018-08-21] MEDS: MEROPENEM 500 MG in SODIUM CHLORIDE 0.9% 100 ML IV SCH (11:35)
[2018-08-21 19:21] LABS: Hematocrit 25.7 VOL% (42.0-52.0); Hemoglobin 7.7 GM/DL (14.0-18.0)
[2018-08-21] MEDS: CARVEDILOL 3.125 MG TABLET PO SCH (21:31)
[2018-08-22 05:46] LABS: Basophils % 0.4 % (0.0-0.8); Eosinophils # 0.3 10*3/uL (0.0-0.87); Eosinophils % 3.1 % (0.00-10.9); Hemoglobin 7.7 GM/DL (14.0-18.0); Immature Granulocytes Absolute 0.16 #; Lymphocytes # 0.5 10*3/uL (1.4-4.0); Lymphocytes % 6.6 % (21.2-54.2); Mean Corpuscular HGB Conc 29.6 GM/DL (32-36); Mean Corpuscular Volume 92.5 FL (87-102); Mean Platelet Volume 9.9 FL (9.6-12.0); Monocytes % 12.4 % (1.7-12.7); NRBC # 0.06 10*3/uL; Neutrophils % 75.5 % (38.7-73.9); Platelet Count 358 T/CUMM (130-400); Red Blood Count 2.81 MC/CUMM (3.8-5.5); Red Cell Distribution Width 16.7 % (9.3-17.3); White Blood Count 8.1 T/CUMM (4-12)
[2018-08-22 05:58] LABS: Osmolality,Calculated 280.7 MOS/KG (273-304)
[2018-08-22 07:51] LABS: Hemoglobin A1 (Alkaline) 97.4 % (96.5-98.5); Hemoglobin A2 (Alkaline) 2.6 % (1.5-3.5)
[2018-08-22] MEDS: INSULIN LISPRO 100 UNIT/ML SUBCUT SCH ×4 (08:00→21:16)
[2018-08-22] MEDS: SILVER SULFADIAZINE 1% CREAM 25 GM TUBE TOP SCH (09:00)
[2018-08-22] MEDS: LACTULOSE 20 GM/30 ML UDCUP PO SCH (10:23)
[2018-08-22] MEDS: PANTOPRAZOLE 40 MG TABLET PO SCH ×2 (10:27→21:14)
[2018-08-22] MEDS: ASPIRIN CHEW 81 MG TABLET PO SCH (10:27)
[2018-08-22] MEDS: CARVEDILOL 3.125 MG TABLET PO SCH ×2 (10:27→21:14)
[2018-08-22] MEDS: MIDODRINE 5 MG TABLET PO SCH ×2 (10:27→21:14)
[2018-08-22] MEDS: SODIUM CHLORIDE 0.9% 250 ML IV SCH ×2 (10:28→21:17)
[2018-08-22] MEDS: SKIN HEALING OINT (AQUAPHOR) 50 GM TUBE TOP SCH (10:29)
[2018-08-22] MEDS ORDERED: POTASSIUM CHLORIDE 20 MEQ TABLET PO ONE (11:37)
[2018-08-22] MEDS: FOLIC ACID 1 MG TABLET PO SCH (11:50)
[2018-08-22] MEDS: CHOLESTYRAMINE 4 GM PACK PO SCH (21:13)
[2018-08-23] MEDS: INSULIN LISPRO 100 UNIT/ML SUBCUT SCH ×4 (08:00→21:44)
[2018-08-23 08:52] LABS: Calcium 10.2 MG/DL (8.5-10.1); Osmolality,Calculated 283.8 MOS/KG (273-304)
[2018-08-23] MEDS: CARVEDILOL 3.125 MG TABLET PO SCH ×2 (09:00→21:47)
[2018-08-23] MEDS: FOLIC ACID 1 MG TABLET PO SCH ×2 (09:00→18:26)
[2018-08-23] MEDS: LACTULOSE 20 GM/30 ML UDCUP PO SCH (16:26)
[2018-08-23] MEDS: MIDODRINE 5 MG TABLET PO SCH ×2 (16:28→21:48)
[2018-08-23] MEDS: SODIUM CHLORIDE 0.9% 250 ML IV SCH (16:28)
[2018-08-23] MEDS: ASPIRIN CHEW 81 MG TABLET PO SCH (17:00)
[2018-08-23] MEDS: SKIN HEALING OINT (AQUAPHOR) 50 GM TUBE TOP SCH (17:01)
[2018-08-23] MEDS: CHOLESTYRAMINE 4 GM PACK PO SCH (17:01)
[2018-08-23] MEDS: PANTOPRAZOLE 40 MG TABLET PO SCH ×2 (17:04→21:48)
[2018-08-23] MEDS: SILVER SULFADIAZINE 1% CREAM 25 GM TUBE TOP SCH (19:00)
[2018-08-24] MEDS: CHOLESTYRAMINE 4 GM PACK PO SCH ×3 (00:48→20:52)
[2018-08-24] MEDS: SODIUM CHLORIDE 0.9% 250 ML IV SCH ×2 (02:25→19:03)
[2018-08-24 05:55] LABS: Basophils # 0.1 10*3/uL (0.0-0.2); Basophils % 0.5 % (0.0-0.8); Eosinophils # 0.3 10*3/uL (0.0-0.87); Eosinophils % 2.8 % (0.00-10.9); Hematocrit 28.9 VOL% (42.0-52.0); Hemoglobin 8.4 GM/DL (14.0-18.0); Immature Granulocytes Absolute 0.11 #; Lymphocytes # 0.6 10*3/uL (1.4-4.0); Lymphocytes % 5.5 % (21.2-54.2); Mean Corpuscular HGB Conc 29.1 GM/DL (32-36); Mean Corpuscular Volume 95.4 FL (87-102); Mean Platelet Volume 9.5 FL (9.6-12.0); Monocytes % 10.2 % (1.7-12.7); NRBC # 0.05 10*3/uL; Platelet Count 333 T/CUMM (130-400); Red Blood Count 3.03 MC/CUMM (3.8-5.5); Red Cell Distribution Width 16.8 % (9.3-17.3); White Blood Count 10.9 T/CUMM (4-12)
[2018-08-24] MEDS: INSULIN LISPRO 100 UNIT/ML SUBCUT SCH ×2 (08:00→21:49)
[2018-08-24] MEDS: SKIN HEALING OINT (AQUAPHOR) 50 GM TUBE TOP SCH (09:09)
[2018-08-24] MEDS: MIDODRINE 5 MG TABLET PO SCH (09:09)
[2018-08-24] MEDS: ASPIRIN CHEW 81 MG TABLET PO SCH (09:09)
[2018-08-24] MEDS: CARVEDILOL 3.125 MG TABLET PO SCH (09:09)
[2018-08-24] MEDS: PANTOPRAZOLE 40 MG TABLET PO SCH ×2 (09:09→20:53)
[2018-08-24] MEDS: FOLIC ACID 1 MG TABLET PO SCH (09:09)
[2018-08-24] MEDS: SILVER SULFADIAZINE 1% CREAM 25 GM TUBE TOP SCH (09:10)
[2018-08-25] MEDS: CARVEDILOL 3.125 MG TABLET PO SCH ×3 (04:51→21:18)
[2018-08-25] MEDS: SODIUM CHLORIDE 0.9% 250 ML IV SCH ×2 (04:57→13:40)
[2018-08-25] MEDS: MIDODRINE 5 MG TABLET PO SCH ×3 (04:57→21:18)
[2018-08-25] MEDS: FOLIC ACID 1 MG TABLET PO SCH (08:15)
[2018-08-25] MEDS: PANTOPRAZOLE 40 MG TABLET PO SCH ×2 (08:15→21:18)
[2018-08-25] MEDS: SKIN HEALING OINT (AQUAPHOR) 50 GM TUBE TOP SCH (08:15)
[2018-08-25] MEDS: CHOLESTYRAMINE 4 GM PACK PO SCH (08:15)
[2018-08-25] MEDS: ASPIRIN CHEW 81 MG TABLET PO SCH (08:15)
[2018-08-25] MEDS: SILVER SULFADIAZINE 1% CREAM 25 GM TUBE TOP SCH (08:16)
[2018-08-25] MEDS: INSULIN LISPRO 100 UNIT/ML SUBCUT SCH ×4 (09:38→21:19)
[2018-08-26 04:47] LABS: Basophils % 0.3 % (0.0-0.8); Eosinophils # 0.4 10*3/uL (0.0-0.87); Eosinophils % 2.8 % (0.00-10.9); Hematocrit 30.4 VOL% (42.0-52.0); Hemoglobin 8.9 GM/DL (14.0-18.0); Immature Granulocytes % 1.1 %; Immature Granulocytes Absolute 0.16 #; Lymphocytes # 0.5 10*3/uL (1.4-4.0); Lymphocytes % 3.1 % (21.2-54.2); Mean Corpuscular HGB Conc 29.3 GM/DL (32-36); Mean Corpuscular Volume 96.2 FL (87-102); Mean Platelet Volume 9.6 FL (9.6-12.0); Monocytes % 6.7 % (1.7-12.7); NRBC # 0.02 10*3/uL; Platelet Count 344 T/CUMM (130-400); Red Blood Count 3.16 MC/CUMM (3.8-5.5); Red Cell Distribution Width 16.8 % (9.3-17.3); White Blood Count 14.9 T/CUMM (4-12)
[2018-08-26 04:58] LABS: Calcium 10.6 MG/DL (8.5-10.1)
[2018-08-26 05:38] LABS: Eosinophils 3 % (0-10); Lymphocytes 6 % (20-55); Segmented Neutrophils 84 % (50-85); Total Cells Counted 100
[2018-08-26 05:40] LABS: Hypochromasia 1+; Platelet Estimate Normal; Polychromasia Few
[2018-08-26] MEDS: INSULIN LISPRO 100 UNIT/ML SUBCUT SCH ×4 (07:29→20:08)
[2018-08-26] MEDS: SKIN HEALING OINT (AQUAPHOR) 50 GM TUBE TOP SCH (08:19)
[2018-08-26] MEDS: PANTOPRAZOLE 40 MG TABLET PO SCH ×2 (08:19→20:05)
[2018-08-26] MEDS: MIDODRINE 5 MG TABLET PO SCH ×2 (08:19→20:05)
[2018-08-26] MEDS: SILVER SULFADIAZINE 1% CREAM 25 GM TUBE TOP SCH (08:19)
[2018-08-26] MEDS: ASPIRIN CHEW 81 MG TABLET PO SCH (08:19)
[2018-08-26] MEDS: CARVEDILOL 3.125 MG TABLET PO SCH ×2 (08:19→20:05)
[2018-08-26] MEDS: FOLIC ACID 1 MG TABLET PO SCH (08:19)
[2018-08-26] MEDS ORDERED: POTASSIUM CHLORIDE 20 MEQ TABLET PO ONE (14:53)
[2018-08-27 05:07] LABS: Basophils # 0.1 10*3/uL (0.0-0.2); Basophils % 0.4 % (0.0-0.8); Eosinophils # 0.5 10*3/uL (0.0-0.87); Eosinophils % 3.1 % (0.00-10.9); Hematocrit 28.1 VOL% (42.0-52.0); Hemoglobin 8.1 GM/DL (14.0-18.0); Immature Granulocytes % 2.6 %; Immature Granulocytes Absolute 0.43 #; Lymphocytes # 0.7 10*3/uL (1.4-4.0); Lymphocytes % 4.4 % (21.2-54.2); Mean Corpuscular HGB Conc 28.8 GM/DL (32-36); Mean Corpuscular Volume 96.2 FL (87-102); Mean Platelet Volume 9.4 FL (9.6-12.0); Monocytes % 8.6 % (1.7-12.7); NRBC # 0.02 10*3/uL; Neutrophils % 80.9 % (38.7-73.9); Platelet Count 349 T/CUMM (130-400); Red Blood Count 2.92 MC/CUMM (3.8-5.5); Red Cell Distribution Width 16.8 % (9.3-17.3); White Blood Count 16.8 T/CUMM (4-12)
[2018-08-27 05:14] LABS: Calcium 9.8 MG/DL (8.5-10.1)
[2018-08-27 06:23] LABS: Band Neutrophils 4 % (0-10); Eosinophils 1 % (0-10); Lymphocytes 5 % (20-55); Nucleated Red Blood Cells 1 (0-5); Segmented Neutrophils 85 % (50-85); Total Cells Counted 100
[2018-08-27 06:24] LABS: Anisocytosis 2+; Macrocytosis 2+; Platelet Estimate Normal
[2018-08-27] MEDS: INSULIN LISPRO 100 UNIT/ML SUBCUT SCH ×4 (07:30→21:44)
[2018-08-27] MEDS: CARVEDILOL 3.125 MG TABLET PO SCH ×2 (09:54→21:45)
[2018-08-27] MEDS: MIDODRINE 5 MG TABLET PO SCH ×2 (09:55→21:44)
[2018-08-27] MEDS: FOLIC ACID 1 MG TABLET PO SCH (09:55)
[2018-08-27] MEDS: PANTOPRAZOLE 40 MG TABLET PO SCH ×2 (09:55→21:44)
[2018-08-27] MEDS: ASPIRIN CHEW 81 MG TABLET PO SCH (09:55)
[2018-08-27] MEDS: SILVER SULFADIAZINE 1% CREAM 25 GM TUBE TOP SCH (10:03)
[2018-08-27] MEDS: SKIN HEALING OINT (AQUAPHOR) 50 GM TUBE TOP SCH (10:04)
[2018-08-27] MEDS ORDERED: TUBERCULIN SKIN TEST 0.1 ML SYRINGE INTRADERM ONE (14:18)
[2018-08-28 05:22] LABS: Basophils # 0.1 10*3/uL (0.0-0.2); Basophils % 0.4 % (0.0-0.8); Eosinophils # 0.6 10*3/uL (0.0-0.87); Hematocrit 28.5 VOL% (42.0-52.0); Hemoglobin 8.4 GM/DL (14.0-18.0); Immature Granulocytes % 3.2 %; Immature Granulocytes Absolute 0.46 #; Lymphocytes # 0.6 10*3/uL (1.4-4.0); Lymphocytes % 4.4 % (21.2-54.2); Mean Corpuscular HGB Conc 29.5 GM/DL (32-36); Mean Corpuscular Volume 95.6 FL (87-102); Mean Platelet Volume 9.8 FL (9.6-12.0); Monocytes % 9.9 % (1.7-12.7); NRBC # 0.03 10*3/uL; Neutrophils % 78.1 % (38.7-73.9); Platelet Count 366 T/CUMM (130-400); Red Blood Count 2.98 MC/CUMM (3.8-5.5); Red Cell Distribution Width 16.8 % (9.3-17.3); White Blood Count 14.4 T/CUMM (4-12)
[2018-08-28 05:33] LABS: Calcium 10.3 MG/DL (8.5-10.1); Osmolality,Calculated 279.1 MOS/KG (273-304)
[2018-08-28 05:50] LABS: Band Neutrophils 5 % (0-10); Eosinophils 6 % (0-10); Lymphocytes 11 % (20-55); Metamyelocytes 3 %; Segmented Neutrophils 70 % (50-85); Total Cells Counted 100
[2018-08-28 05:51] LABS: Hypochromasia 2+; Platelet Estimate Normal; Target Cells 2+
[2018-08-28] MEDS: INSULIN LISPRO 100 UNIT/ML SUBCUT SCH ×3 (13:34→21:05)
[2018-08-28] MEDS: MIDODRINE 5 MG TABLET PO SCH ×2 (15:46→21:05)
[2018-08-28] MEDS: CARVEDILOL 3.125 MG TABLET PO SCH ×2 (15:47→21:05)
[2018-08-28] MEDS: SKIN HEALING OINT (AQUAPHOR) 50 GM TUBE TOP SCH (15:47)
[2018-08-28] MEDS: PANTOPRAZOLE 40 MG TABLET PO SCH ×2 (15:47→21:05)
[2018-08-28] MEDS: FOLIC ACID 1 MG TABLET PO SCH (15:47)
[2018-08-28] MEDS: ASPIRIN CHEW 81 MG TABLET PO SCH (15:47)
[2018-08-28] MEDS: SILVER SULFADIAZINE 1% CREAM 25 GM TUBE TOP SCH (15:54)
[2018-08-28] MEDS ORDERED: SODIUM CHLORIDE 0.9% 500 ML IV ONE (16:13)
[2018-08-29 06:15] LABS: Calcium 10.1 MG/DL (8.5-10.1); Osmolality,Calculated 274.1 MOS/KG (273-304)
[2018-08-29 06:16] LABS: Basophils # 0.1 10*3/uL (0.0-0.2); Basophils % 0.6 % (0.0-0.8); Eosinophils # 0.6 10*3/uL (0.0-0.87); Eosinophils % 4.2 % (0.00-10.9); Hemoglobin 8.2 GM/DL (14.0-18.0); Immature Granulocytes % 5.7 %; Immature Granulocytes Absolute 0.82 #; Lymphocytes # 0.8 10*3/uL (1.4-4.0); Lymphocytes % 5.6 % (21.2-54.2); Mean Corpuscular HGB Conc 28.6 GM/DL (32-36); Mean Platelet Volume 9.7 FL (9.6-12.0); Monocytes % 10.5 % (1.7-12.7); NRBC # 0.03 10*3/uL; Neutrophils % 73.4 % (38.7-73.9); Platelet Count 383 T/CUMM (130-400); Red Blood Count 2.93 MC/CUMM (3.8-5.5); Red Cell Distribution Width 16.7 % (9.3-17.3); White Blood Count 14.4 T/CUMM (4-12)
[2018-08-29 06:40] LABS: Hematocrit 28.6 VOL% (42.0-52.0)
[2018-08-29 06:42] LABS: Band Neutrophils 4 % (0-10); Eosinophils 4 % (0-10); Hypochromasia 1+; Lymphocytes 1 % (20-55); Myelocytes 1 %; Platelet Estimate Adequate; Segmented Neutrophils 78 % (50-85); Total Cells Counted 100
[2018-08-29] MEDS: INSULIN LISPRO 100 UNIT/ML SUBCUT SCH ×4 (08:33→22:04)
[2018-08-29] MEDS ORDERED: DIGOXIN 0.5 MG/2 ML AMP IV ONE (09:42)
[2018-08-29] MEDS: ASPIRIN CHEW 81 MG TABLET PO SCH (10:13)
[2018-08-29] MEDS: ACETAMINOPHEN 325 MG TABLET PO PRN (10:13)
[2018-08-29] MEDS: PANTOPRAZOLE 40 MG TABLET PO SCH ×2 (10:13→22:05)
[2018-08-29] MEDS: MIDODRINE 5 MG TABLET PO SCH ×2 (10:13→22:05)
[2018-08-29] MEDS: FOLIC ACID 1 MG TABLET PO SCH (10:13)
[2018-08-29] MEDS: SILVER SULFADIAZINE 1% CREAM 25 GM TUBE TOP SCH (12:06)
[2018-08-29] MEDS: SKIN HEALING OINT (AQUAPHOR) 50 GM TUBE TOP SCH (12:06)
[2018-08-30 04:31] LABS: Basophils # 0.1 10*3/uL (0.0-0.2); Basophils % 0.6 % (0.0-0.8); Eosinophils # 0.7 10*3/uL (0.0-0.87); Eosinophils % 4.2 % (0.00-10.9); Hemoglobin 8.1 GM/DL (14.0-18.0); Immature Granulocytes % 6.8 %; Immature Granulocytes Absolute 1.19 #; Lymphocytes # 0.8 10*3/uL (1.4-4.0); Lymphocytes % 4.4 % (21.2-54.2); Mean Corpuscular HGB Conc 28.9 GM/DL (32-36); Mean Corpuscular Volume 96.2 FL (87-102); Mean Platelet Volume 9.6 FL (9.6-12.0); Monocytes % 9.3 % (1.7-12.7); NRBC # 0.03 10*3/uL; Neutrophils % 74.7 % (38.7-73.9); Platelet Count 391 T/CUMM (130-400); Red Blood Count 2.91 MC/CUMM (3.8-5.5); Red Cell Distribution Width 16.7 % (9.3-17.3); White Blood Count 17.6 T/CUMM (4-12)
[2018-08-30 04:58] LABS: Calcium 10.4 MG/DL (8.5-10.1)
[2018-08-30 05:05] LABS: Anisocytosis Slight; Hypochromasia Slight; Microcytosis Slight
[2018-08-30 05:06] LABS: Polychromasia Few; Stomatocytes Slight; Target Cells Slight
[2018-08-30 05:07] LABS: Platelet Estimate Normal
[2018-08-30 06:31] LABS: Band Neutrophils 3 % (0-10); Eosinophils 1 % (0-10); Lymphocytes 7 % (20-55); Metamyelocytes 1 %; Myelocytes 2 %; Segmented Neutrophils 78 % (50-85); Total Cells Counted 100
[2018-08-30] MEDS: INSULIN LISPRO 100 UNIT/ML SUBCUT SCH ×4 (09:15→21:14)
[2018-08-30] MEDS: ASPIRIN CHEW 81 MG TABLET PO SCH (12:25)
[2018-08-30] MEDS: PANTOPRAZOLE 40 MG TABLET PO SCH ×2 (12:25→21:21)
[2018-08-30] MEDS: SILVER SULFADIAZINE 1% CREAM 25 GM TUBE TOP SCH (12:25)
[2018-08-30] MEDS: MIDODRINE 5 MG TABLET PO SCH ×2 (12:25→21:21)
[2018-08-30] MEDS: FOLIC ACID 1 MG TABLET PO SCH (12:25)
[2018-08-30] MEDS: SKIN HEALING OINT (AQUAPHOR) 50 GM TUBE TOP SCH (12:25)
[2018-08-31] MEDS: INSULIN LISPRO 100 UNIT/ML SUBCUT SCH ×4 (07:43→21:02)
[2018-08-31] MEDS: MIDODRINE 5 MG TABLET PO SCH ×2 (10:37→21:02)
[2018-08-31] MEDS: ASPIRIN CHEW 81 MG TABLET PO SCH (10:37)
[2018-08-31] MEDS: PANTOPRAZOLE 40 MG TABLET PO SCH ×2 (10:37→21:02)
[2018-08-31] MEDS: SKIN HEALING OINT (AQUAPHOR) 50 GM TUBE TOP SCH (10:39)
[2018-08-31] MEDS: FOLIC ACID 1 MG TABLET PO SCH (10:39)
[2018-08-31] MEDS: SILVER SULFADIAZINE 1% CREAM 25 GM TUBE TOP SCH (10:39)
[2018-09-01 06:01] LABS: Calcium 11.1 MG/DL (8.5-10.1)
[2018-09-01 06:14] LABS: Basophils # 0.1 10*3/uL (0.0-0.2); Basophils % 0.9 % (0.0-0.8); Eosinophils # 0.7 10*3/uL (0.0-0.87); Eosinophils % 4.3 % (0.00-10.9); Hematocrit 29.1 VOL% (42.0-52.0); Immature Granulocytes % 10.4 %; Immature Granulocytes Absolute 1.59 #; Lymphocytes # 0.9 10*3/uL (1.4-4.0); Lymphocytes % 5.7 % (21.2-54.2); Mean Corpuscular HGB Conc 28.5 GM/DL (32-36); Mean Corpuscular Volume 97.3 FL (87-102); Mean Platelet Volume 9.4 FL (9.6-12.0); Monocytes % 8.7 % (1.7-12.7); NRBC # 0.04 10*3/uL; Platelet Count 392 T/CUMM (130-400); Red Blood Count 2.99 MC/CUMM (3.8-5.5); Red Cell Distribution Width 16.8 % (9.3-17.3); White Blood Count 15.2 T/CUMM (4-12)
[2018-09-01 06:24] LABS: Hemoglobin 8.3 GM/DL (14.0-18.0)
[2018-09-01 06:49] LABS: Anisocytosis Slight; Band Neutrophils 4 % (0-10); Eosinophils 3 % (0-10); Lymphocytes 9 % (20-55); Microcytosis Slight; Myelocytes 2 %; Nucleated Red Blood Cells 2 (0-5); Segmented Neutrophils 70 % (50-85); Total Cells Counted 100
[2018-09-01 06:50] LABS: Hypochromasia Slight
[2018-09-01 06:51] LABS: Platelet Estimate Normal
[2018-09-01] MEDS: INSULIN LISPRO 100 UNIT/ML SUBCUT SCH ×4 (07:30→20:36)
[2018-09-01] MEDS: MIDODRINE 5 MG TABLET PO SCH ×2 (09:54→20:36)
[2018-09-01] MEDS: FOLIC ACID 1 MG TABLET PO SCH (09:55)
[2018-09-01] MEDS: PANTOPRAZOLE 40 MG TABLET PO SCH ×2 (09:55→20:36)
[2018-09-01] MEDS: ASPIRIN CHEW 81 MG TABLET PO SCH (09:55)
[2018-09-01] MEDS: SKIN HEALING OINT (AQUAPHOR) 50 GM TUBE TOP SCH (09:55)
[2018-09-01] MEDS: SILVER SULFADIAZINE 1% CREAM 25 GM TUBE TOP SCH (10:00)
[2018-09-01] MEDS ORDERED: POTASSIUM CHLORIDE 10 MEQ TABLET PO ONE (11:41)
[2018-09-02 05:19] LABS: Basophils # 0.1 10*3/uL (0.0-0.2); Basophils % 0.6 % (0.0-0.8); Eosinophils # 0.8 10*3/uL (0.0-0.87); Eosinophils % 5.3 % (0.00-10.9); Hematocrit 27.5 VOL% (42.0-52.0); Hemoglobin 7.9 GM/DL (14.0-18.0); Immature Granulocytes Absolute 1.27 #; Lymphocytes # 0.8 10*3/uL (1.4-4.0); Lymphocytes % 5.9 % (21.2-54.2); Mean Corpuscular HGB Conc 28.7 GM/DL (32-36); Mean Corpuscular Volume 96.5 FL (87-102); Mean Platelet Volume 9.5 FL (9.6-12.0); Monocytes % 8.5 % (1.7-12.7); NRBC # 0.05 10*3/uL; Neutrophils % 70.7 % (38.7-73.9); Platelet Count 373 T/CUMM (130-400); Red Blood Count 2.85 MC/CUMM (3.8-5.5); Red Cell Distribution Width 16.7 % (9.3-17.3); White Blood Count 14.2 T/CUMM (4-12)
[2018-09-02 05:45] LABS: Calcium 11.6 MG/DL (8.5-10.1); Osmolality,Calculated 278.1 MOS/KG (273-304)
[2018-09-02 06:37] LABS: Lymphocytes 6 % (20-55); Metamyelocytes 1 %; Segmented Neutrophils 79 % (50-85); Total Cells Counted 100
[2018-09-02 06:38] LABS: Anisocytosis Slight; Microcytosis Slight
[2018-09-02 06:39] LABS: Target Cells Slight
[2018-09-02 06:40] LABS: Platelet Estimate Normal; Spherocytes Slight
[2018-09-02] MEDS: FOLIC ACID 1 MG TABLET PO SCH (08:51)
[2018-09-02] MEDS: SKIN HEALING OINT (AQUAPHOR) 50 GM TUBE TOP SCH (08:51)
[2018-09-02] MEDS: PANTOPRAZOLE 40 MG TABLET PO SCH ×2 (08:51→20:53)
[2018-09-02] MEDS: ASPIRIN CHEW 81 MG TABLET PO SCH (08:51)
[2018-09-02] MEDS: MIDODRINE 5 MG TABLET PO SCH ×2 (08:51→20:53)
[2018-09-02] MEDS ORDERED: SIMETHICONE CHEW 80 MG TABLET PO PRN (09:44)
[2018-09-02] MEDS ORDERED: SODIUM CHLORIDE 0.9% 1,000 ML IV PRN ×2 (10:07→10:08)
[2018-09-02] MEDS: INSULIN LISPRO 100 UNIT/ML SUBCUT SCH ×4 (11:20→20:54)
[2018-09-02] MEDS: CHLORHEXIDINE 0.12% ORAL RINSE 60 ML BOTTLE SWISH/SPIT SCH ×2 (15:14→20:53)
[2018-09-02] MEDS: SILVER SULFADIAZINE 1% CREAM 25 GM TUBE TOP SCH (15:14)
[2018-09-02 15:51] LABS: Hematocrit 30.3 VOL% (42.0-52.0); Hemoglobin 8.8 GM/DL (14.0-18.0)
[2018-09-02] MEDS: ACETAMINOPHEN 325 MG TABLET PO PRN (22:22)
[2018-09-03 05:25] LABS: Basophils # 0.1 10*3/uL (0.0-0.2); Basophils % 0.5 % (0.0-0.8); Eosinophils # 0.6 10*3/uL (0.0-0.87); Hematocrit 30.6 VOL% (42.0-52.0); Immature Granulocytes % 10.5 %; Immature Granulocytes Absolute 1.34 #; Lymphocytes # 0.9 10*3/uL (1.4-4.0); Lymphocytes % 6.7 % (21.2-54.2); Mean Corpuscular HGB Conc 29.4 GM/DL (32-36); Mean Corpuscular Volume 96.5 FL (87-102); Mean Platelet Volume 9.5 FL (9.6-12.0); Monocytes % 8.3 % (1.7-12.7); NRBC # 0.08 10*3/uL; Platelet Count 341 T/CUMM (130-400); Red Blood Count 3.17 MC/CUMM (3.8-5.5); Red Cell Distribution Width 16.7 % (9.3-17.3); White Blood Count 12.8 T/CUMM (4-12)
[2018-09-03 05:27] LABS: Calcium 10.9 MG/DL (8.5-10.1)
[2018-09-03 05:58] LABS: Band Neutrophils 4 % (0-10); Eosinophils 2 % (0-10); Lymphocytes 7 % (20-55); Metamyelocytes 1 %; Myelocytes 4 %; Nucleated Red Blood Cells 1 (0-5); Segmented Neutrophils 75 % (50-85); Total Cells Counted 100
[2018-09-03 05:59] LABS: Anisocytosis 1+
[2018-09-03 06:00] LABS: Acanthocytes 1+; Hypochromasia 1+; Platelet Estimate Adequate
[2018-09-03] MEDS: INSULIN LISPRO 100 UNIT/ML SUBCUT SCH ×2 (09:20→12:46)
[2018-09-03] MEDS: PANTOPRAZOLE 40 MG TABLET PO SCH (09:23)
[2018-09-03] MEDS: ASPIRIN CHEW 81 MG TABLET PO SCH (09:23)
[2018-09-03] MEDS: SILVER SULFADIAZINE 1% CREAM 25 GM TUBE TOP SCH (09:23)
[2018-09-03] MEDS: SKIN HEALING OINT (AQUAPHOR) 50 GM TUBE TOP SCH (09:23)
[2018-09-03] MEDS: MIDODRINE 5 MG TABLET PO SCH (09:23)
[2018-09-03] MEDS: FOLIC ACID 1 MG TABLET PO SCH (09:23)
[2018-09-03] MEDS: CHLORHEXIDINE 0.12% ORAL RINSE 60 ML BOTTLE SWISH/SPIT SCH (09:23)
[2018-09-03 13:05] VITALS: BP 138/84
== END 2018-09-03 14:05 | DRG 673 ==
LOC: N.ICU 23:04 → SUATTDRO 23:04 → N.5E 08-19 20:56
PROVIDERS: ADMIT Internal Medicine; ATTEND Hospitalist